=== PATIENT | male | born 2000 | race Hispanic/Latino ===

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

== ENCOUNTER 2023-04-28 23:12 | Emergency (ER) | payer OTHER | END 2023-04-29 02:38 | disposition left against medical advice (07) | LOC: ERS 23:12 | DX: Z53.21 Procedure and treatment not carried out due to patient leaving prior to being seen by health care provider (principal) | CPT/HCPCS: 99282 ==